=== PATIENT | male | born 1975 | race Caucasian/White ===

== ENCOUNTER → 2016-11-17 | Outpatient (CLI) | payer OTHER ==
--- NOTE | 2016-11-17 15:10 | REP ---
CT STUDY OF THE LEFT FOOT WITHOUT CONTRAST: HISTORY: Pain, question tarsal coalition. Comparison radiographs are from October 16, 2015. TECHNIQUE: Helical scanning is acquired and 2 mm axial images are reformatted. Coronal and sagittal multiplanar re-formation images are generated and reviewed. CT FINDINGS: There is Achilles and some mild plantar calcaneal spurring. There is mild osteoarthritic spurring at the tibiotalar and subtalar articulations. There is moderate spurring at the superior or dorsal aspect of the talonavicular articulation. There is no CT evidence of tarsal coalition. Mild spurring is seen between the navicula and the cuneiform bones. There is a fairly large os peroneum. There is some mild tendon insertion site spurring on the proximal end of the fifth metatarsal. No bony destructive lesion is seen. Soft tissue window settings show no significant abnormality. IMPRESSION: 1. No evidence of tarsal coalition. 2. 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 Signed by Pan Parker MD 11/17/2016 06:19 P
== END ==
LOC: M RAD 12:21
PROVIDERS: ATTEND Podiatrist
DX: M79.672 Pain in left foot (principal); M19.072 Primary osteoarthritis, left ankle and foot

== ENCOUNTER → 2020-04-08 | Emergency (ER) | payer OTHER, MEDICAID ==
[~2020-04-08] MED LIST: AMLO10TA PO; AMLO1TAB24; LOSA25TA14 PO; amLODIPine 5 MG TAB As Ordered ONE
--- NOTE | 2020-05-22 16:51 | ECGEPIP ---
SINUS RHYTHM NONSPECIFIC ST & T-WAVE CHANGES SEE SCANNED DOWNTIME REPORT MTDD
[2020-05-25 09:44] LABS: BASO # 0.1 10^3/uL (0.0-0.2); BASO % 0.9 % (0.0-1.0); EOS # 0.3 10^3/uL (0.0-0.5); EOS % 2.4 % (0.0-3.0); HEMATOCRIT 36.9 % (42.0-52.0); HEMOGLOBIN 11.6 g/dl (13.5-17.5); LYMPH # 2.6 10^3/uL (1.5-5.0); LYMPH % 25.2 % (24.0-44.0); MEAN CORPUSCULAR HEMOGLOBIN 26.8 pg (27.0-33.0); MEAN CORPUSCULAR HGB CONC 31.4 g/dl (32.0-36.5); MEAN CORPUSCULAR VOLUME 85.2 fl (80.0-96.0); MONO # 0.8 10^3/uL (0.0-0.8); MONO % 7.9 % (0.0-5.0); NEUTROPHILS # 6.2 10^3/uL (1.5-8.5); NEUTROPHILS % 60.7 % (36.0-66.0); PLATELET COUNT, AUTOMATED 357 10^3/uL (150-450); RED BLOOD COUNT 4.33 10^6/uL (4.30-6.10); WHITE BLOOD COUNT 10.2 10^3/uL (4.0-10.0)
[2020-06-21 19:27] LABS: BLOOD UREA NITROGEN 13 MG/DL (7-18); CALCIUM LEVEL 8.8 MG/DL (8.5-10.1); CARBON DIOXIDE LEVEL 29 MEQ/L (21-32); CHLORIDE LEVEL 104 MEQ/L (98-107); CK-MB VALUE MASS 5.5 NG/ML (<3.6); CPK CREATINE PHOSPHOKINASE 197 U/L (39-308); CREATININE FOR GFR 0.94 MG/DL (0.70-1.30); GLOMERULAR FILTRATION RATE > 60.0 (>60); GLUCOSE, FASTING 98 MG/DL (70-100); MB/CK RELATIVE INDEX 2.79 (< OR =4); POTASSIUM SERUM 3.8 MEQ/L (3.5-5.1); SODIUM LEVEL 136 MEQ/L (136-145); TROPONIN I 0.02 NG/ML (< 0.10)
[2020-06-21 19:29] LABS: HEMOGLOBIN A1c 6.1 %
== END | disposition home or self-care (01) ==
LOC: M ED 22:56
DX: I10 Essential (primary) hypertension (principal); R06.02 Shortness of breath; Z87.891 Personal history of nicotine dependence

== ENCOUNTER 2020-05-08 13:45 | Emergency (ER) | payer MEDICARE, MEDICAID ==
[~2020-05-08] VITALS: Ht 165.1 cm; Wt 170.9 kg
[2020-05-08] MEDS ORDERED: AMLO1TAB24 (13:54)
[2020-05-08 14:53] LABS: BASO # 0.1 10^3/uL (0.0-0.2); BASO % 1.1 % (0.0-1.0); EOS # 0.2 10^3/uL (0.0-0.5); EOS % 2.1 % (0.0-3.0); HEMATOCRIT 41.2 % (42.0-52.0); HEMOGLOBIN 12.6 g/dl (13.5-17.5); LYMPH # 2.4 10^3/uL (1.5-5.0); LYMPH % 25.9 % (24.0-44.0); MEAN CORPUSCULAR HEMOGLOBIN 26.6 pg (27.0-33.0); MEAN CORPUSCULAR HGB CONC 30.6 g/dl (32.0-36.5); MEAN CORPUSCULAR VOLUME 86.9 fl (80.0-96.0); MONO # 0.7 10^3/uL (0.0-0.8); MONO % 7.2 % (0.0-5.0); NEUTROPHILS # 5.7 10^3/uL (1.5-8.5); NEUTROPHILS % 62.6 % (36.0-66.0); PLATELET COUNT, AUTOMATED 365 10^3/uL (150-450); RED BLOOD COUNT 4.74 10^6/uL (4.30-6.10); WHITE BLOOD COUNT 9.1 10^3/uL (4.0-10.0)
[2020-05-08 15:11] LABS: BLOOD UREA NITROGEN 12 MG/DL (7-18); CALCIUM LEVEL 9.4 MG/DL (8.5-10.1); CARBON DIOXIDE LEVEL 29 MEQ/L (21-32); CHLORIDE LEVEL 106 MEQ/L (98-107); CREATININE FOR GFR 0.99 MG/DL (0.70-1.30); GLOMERULAR FILTRATION RATE > 60.0 (>60); GLUCOSE, FASTING 111 MG/DL (70-100); POTASSIUM SERUM 4.2 MEQ/L (3.5-5.1); SODIUM LEVEL 140 MEQ/L (136-145)
--- NOTE | 2020-05-08 15:14 | REPVR ---
PROCEDURE INFORMATION: Exam: XR Chest, 2 Views Exam date and time: 05/08/2020 2:51 PM Age: 45 years old Clinical indication: Screening exam; Other screening; Patient HX: PT is hypertensive; Additional info: Hypertension ext time TECHNIQUE: Imaging protocol: XR of the chest Views: 2 views. COMPARISON: CR Chest, 1 view 10/16/2015 1:55 AM FINDINGS: Lungs: Unremarkable. No consolidation. Pleural space: Unremarkable. No pleural effusion. No pneumothorax. Heart/Mediastinum: Unremarkable. No cardiomegaly. Bones/joints: Unremarkable. IMPRESSION: No acute findings. Electronically signed by: Perico Griffin On 05/08/2020 15:14:02 PM
[2020-05-08] MEDS ORDERED: AMLO10TA PO (15:32)
[2020-05-08] MEDS ORDERED: LOSA25TA14 PO (15:32)
[2020-05-08 15:42] LABS: NT-PRO BNP 103 PG/ML (<125)
[2020-05-08 15:54] VITALS: BP 190/98
[2020-05-08] MEDS ORDERED: LOSARTAN 25 MG TAB PO ONE (16:00)
[2020-05-08] MEDS ORDERED: amLODIPine 10 MG TAB PO ONE (16:00)
[2020-05-08 16:04] VITALS: BP 180/108
--- NOTE | 2020-05-16 15:29 | ECGEPIP ---
[facility] - ED Test Date: 2020-05-08 Pat Name: MARY BLANCA Department: Room: - Gender: Male Hvac Technician: leodan : 1975 Requested By: SHAYNA Contreras PA-C Order Number: [id number] Reading MD: Meredith Parry Measurements Intervals [place] Rate: 81 P: 23 OK: 175 QRS: 31 QRSD: 103 T: 54 QT: 378 QTc: 441 Interpretive Statements SINUS RHYTHM NONSPECIFIC T-WAVE ABNORMALITY BORDERLINE ECG SEE SCANNED DOWNTIME REPORT
== END 2020-05-08 16:06 | disposition home or self-care (01) ==
LOC: M ED 13:45
DX: Z76.0 Encounter for issue of repeat prescription (principal); I10 Essential (primary) hypertension; R94.31 Abnormal electrocardiogram [ECG] [EKG]; Z79.899 Other long term (current) drug therapy; Z87.891 Personal history of nicotine dependence

== ENCOUNTER → 2020-05-13 | Outpatient (REF) | payer MEDICARE, MEDICAID ==
[~2020-05-13] MED LIST changes: -amLODIPine 5 MG TAB As Ordered ONE
[2020-05-13 19:05] LABS: CHOLESTEROL RISK RATIO 5.475 (<5); FREE T4 1.15 NG/DL (0.76-1.46); THYROID STIMULATING HORMONE 1.87 uIU/ML (0.358-3.740)
[2020-05-13 20:09] LABS: HEMOGLOBIN A1c 5.6 %
== END ==
LOC: M SFHCLERA 17:53
PROVIDERS: ATTEND Nurse Practitioner Family
DX: I10 Essential (primary) hypertension (principal); R73.01 Impaired fasting glucose; Z13.220 Encounter for screening for lipoid disorders

== ENCOUNTER 2020-10-09 23:02 | Emergency (ER) | payer MEDICARE, MEDICAID ==
[~2020-10-09] VITALS: Ht 165.1 cm; Wt 171.2 kg
--- OUTSIDE RECORDS SUMMARY | 2020-10-09 23:10 | CCD ---
Author Author [facility] Organization [facility] Address Unknown Phone Unavailable Support Name Relationship Address Phone KRISHNA BLANCA [place] [address] JRC* [place] [address] [place] [address] UN ANIA BLNACA [place] [address] JUSTINEKRISHNA CORTES ECON Unknown Unavailable Re-disclosure Warning The records that you are about to access may contain information from federally-assisted alcohol or drug abuse programs. If such information is present, then the following federally mandated warning applies: This information has been disclosed to you from records protected by federal confidentiality rules (42 CFR part 2). The federal rules prohibit you from making any further disclosure of this information unless further disclosure is expressly permitted by the written consent of the person to whom it pertains or as otherwise permitted by 42 CFR part 2. A general authorization for the release of medical or other information is NOT sufficient for this purpose. The Federal rules restrict any use of the information to criminally investigate or prosecute any alcohol or drug abuse patient.The records that you are about to access may contain highly sensitive health information, the redisclosure of which is protected by Article 27-F of the [facility] Public Health law. If you continue you may have access to information: Regarding HIV / AIDS; Provided by facilities licensed or operated by the [facility] Office of Mental Health; or Provided by the [facility] Office for People With Developmental Disabilities. If such information is present, then the following [facility] mandated warning applies: This information has been disclosed to you from confidential records which are protected by state law. State law prohibits you from making any further disclosure of this information without the specific written consent of the person to whom it pertains, or as otherwise permitted by law. Any unauthorized further disclosure in violation of state law may result in a fine or halfway sentence or both. A general authorization for the release of medical or other information is NOT sufficient authorization for further disc losure. Family History Family Member Name Family Member Gender Family Member Status Date o f Status Description Data Source(s) Unknown Unknown Problem MEDENT ([facility]) Unknown Unknown Problem MEDENT ([facility]) Unknown Unknown Problem MEDENT ([facility]) Unknown Unknown Problem MEDENT ([facility]) Unknown Unknown Problem MEDENT ([facility]) Encounters Encounter Providers Location Date Indications Data Source(s ) Unknown [address] [facility] [address] 09/09/2020 12:00:00 AM EST eCW1 ([facility]) Medications Medication Brand Name Start Date Product Form Dose Route Admi nistrative Instructions Pharmacy Instructions Status Indications Reaction Description Data Source(s) 10 mg 10/06/2020 12:00:00 AM EST tablet 30 TAKE ONE TABLET BY MOUTH EVERY DAY TAKE ONE TABLET BY MOUTH EVERY DAY SOLD: 10/08/2020 [facility] 25 mg 10/06/2020 12:00:00 AM EST tablet 30 TAKE ONE TABLET BY MOUTH EVERY DAY TAKE ONE TABLET BY MOUTH EVERY DAY SOLD: 10/08/2020 [facility] Pravastatin Sodium 10 MG Oral Tablet PRAVASTATIN SODIUM 12:00:00 AM EST tablet 30 TAKE ONE TABLET BY MOUTH BRENDA TAKE ONE TABLET BY MOUTH EVERY DAY SOLD: 09/29/2020 [facility] 25 mg 09/10/2020 12:00:00 AM EST tablet 30 TAKE ONE TABLET BY MOUTH EVERY MORNING WITH FOOD TAKE ONE TABLET BY MOUTH EVERY MORNING WITH FOOD SOLD: 09/10/2020 [facility] 25 mg 09/10/2020 12:00:00 AM EST tablet 30 TAKE ONE TABLET BY MOUTH EVERY MORNING WITH FOOD TAKE ONE TABLET BY MOUTH EVERY MORNING WITH FOOD SOLD: 10/08/2020 [facility] Chlorthalidone 25 MG Oral Tablet Chlorthalidone 25 MG 2020 12:00:00 AM EST 1.0 {tablet_in_the_morning_with_food} active Chlorthalidone 25 MG eCW1 (Pending Sale To [facility]) Insurance Providers Payer name Policy type / Coverage type Policy ID Covered republican ID Covered republican's relationship to kim Policy Kim Plan Information JONH MEDICARE [id number] SP [id number] EMEDNY [id number] SP [id number] JOHN [id number] SP [id number] [place]ET[place] [id number] SP [id number] MEDICAID M [id number] [place] O [id number] S [id number] [place] O [id number] O [id number] [employer] [place] [id number] SP [id number] [employer] [place] [place] [id number] SP [id number] Aetna Ppo/Pos/Nap/MC Commercial Self SELF PAY UNAVAILABLE SP UNAVAILA BLE [id number] Patient Treatment Plan of Care Planned Activity Planned Date Details Description Data Source (s) Chlorthalidone 25 MG Oral Tablet 09/09/2020 12:00:00 AM EST eCW1 (Pending Sale To [facility])
--- OUTSIDE RECORDS SUMMARY | 2020-10-09 23:10 | CCD ---
Author Author [facility] Organization [facility] Address Unknown Phone Unavailable Care Team Providers Care Registered Massage Therapist Name Role Phone Fior Norman Unavailable PROBLEMS No Information ALLERGIES No Known Allergies ENCOUNTERS from 1975 to 2020-09-10 Encounter Location Date Provider Diagnosis [facility] [address] [place] [address] Sep, Fior Norman IMMUNIZATIONS No Information SOCIAL HISTORY Tobacco Use: Social History Observation Description Date Details (start date - stop date) Never Smoker Sex Assigned At : Social History Observation Description Sex Assigned At Unknown Tobacco Use: Question Answer Notes Are you a: never smoker REASON FOR REFERRAL No Information VITAL SIGNS No information MEDICATIONS Medication SIG (Take, Route, Frequency, Duration) Notes Start Da te End Date Status Chlorthalidone 25 MG 1 tablet in the morning with food Orally Once a day for 90 day(s) Sep, Active Amoxicillin 500 MG 1 tablet Orally bid for 10 day(s) 2018 Active PROCEDURES No Information RESULTS No Results REASON FOR VISIT Refill Goals Section No Information Health Concerns No Information MEDICAL EQUIPMENT No Information MENTAL STATUS No Information FUNCTIONAL STATUS No Information ASSESSMENTS No Information PLAN OF TREATMENT Medication Medication Name Sig Start Date Stop Date Chlorthalidone 25 MG 1 tablet in the morning with food Orally Once a day for 90 day(s) Sep, Amoxicillin 500 MG 1 tablet Orally bid for 10 day(s) Oct, 201 9 Insurance Providers Payer Name Payer Address Payer Phone Insured Name Patient Relati onship to Insured Coverage Start Date Coverage End Date AETNA [facility] [id number] [facility] [id number] MARY BLANCA self
[2020-10-09] MEDS ORDERED: PRAV10TA3 (23:14)
[2020-10-09] MEDS ORDERED: CHLO125TA (23:14)
--- NOTE | 2020-10-09 23:38 | REPVR ---
PROCEDURE INFORMATION: Exam: XR Chest, 2 Views Exam date and time: 10/09/2020 11:28 PM Age: 45 years old Clinical indication: Shortness of breath; Additional info: SOB TECHNIQUE: Imaging protocol: XR of the chest Views: 2 views. COMPARISON: CR Chest, 2 view PA, Lat 05/08/2020 2:19 PM FINDINGS: Lungs: Unremarkable. No consolidation. Pleural spaces: Unremarkable. No pleural effusion. No pneumothorax. Heart/Mediastinum: Unremarkable. No cardiomegaly. Bones/joints: Unremarkable. Soft tissues: There are generous overlying soft tissues. IMPRESSION: Negative chest without significant change from 05/08/2020. Electronically signed by: Russell Marrufo On 10/09/2020 23:37:33 PM
[2020-10-09 23:57] LABS: VENOUS BASE EXCESS -2.1 (-2.0-2.0); VENOUS HCO3 18.5 MEQ/L (23.0-27.0); VENOUS O2 SATURATION 98.9 % (60.0-80.0); VENOUS PARTIAL PRESSURE O2 129.3 mmHg (30.0-50.0); VENOUS PH 7.543 UNITS (7.330-7.430); VENOUS STANDARD HCO3 22.7 MEQ/L; VENOUS TOTAL CO2 19.2 MEQ/L (24.0-28.0)
[2020-10-10 00:17] LABS: BASO # 0.1 10^3/uL (0.0-0.2); BASO % 0.7 % (0.0-1.0); EOS # 0.2 10^3/uL (0.0-0.5); EOS % 1.6 % (0.0-3.0); HEMATOCRIT 36.9 % (42.0-52.0); HEMOGLOBIN 11.5 g/dl (13.5-17.5); LYMPH # 2.6 10^3/uL (1.5-5.0); LYMPH % 25.6 % (24.0-44.0); MEAN CORPUSCULAR HEMOGLOBIN 26.3 pg (27.0-33.0); MEAN CORPUSCULAR HGB CONC 31.2 g/dl (32.0-36.5); MEAN CORPUSCULAR VOLUME 84.2 fl (80.0-96.0); MONO # 0.9 10^3/uL (0.0-0.8); MONO % 8.9 % (0.0-5.0); NEUTROPHILS # 6.4 10^3/uL (1.5-8.5); NEUTROPHILS % 62.4 % (36.0-66.0); PLATELET COUNT, AUTOMATED 313 10^3/uL (150-450); RED BLOOD COUNT 4.38 10^6/uL (4.30-6.10); WHITE BLOOD COUNT 10.2 10^3/uL (4.0-10.0)
[2020-10-10 00:33] LABS: ALBUMIN 3.7 GM/DL (3.2-5.2); ALT/SGPT 22 U/L (12-78); BILIRUBIN,DIRECT < 0.1 MG/DL (0.0-0.2); BILIRUBIN,TOTAL 0.2 MG/DL (0.2-1.0); BLOOD UREA NITROGEN 19 MG/DL (7-18); CALCIUM LEVEL 9.4 MG/DL (8.5-10.1); CARBON DIOXIDE LEVEL 28 MEQ/L (21-32); CHLORIDE LEVEL 103 MEQ/L (98-107); CK-MB VALUE MASS 6.2 NG/ML (<3.6); CPK CREATINE PHOSPHOKINASE 315 U/L (39-308); CREATININE FOR GFR 1.01 MG/DL (0.70-1.30); GLOMERULAR FILTRATION RATE > 60.0 (>60); GLUCOSE, FASTING 90 MG/DL (70-100); MB/CK RELATIVE INDEX 1.97 (< OR =4); NT-PRO BNP 75 PG/ML (<125); POTASSIUM SERUM 3.7 MEQ/L (3.5-5.1); SODIUM LEVEL 139 MEQ/L (136-145); TOTAL PROTEIN 7.4 GM/DL (6.4-8.2); TROPONIN I < 0.02 NG/ML (< 0.10)
[2020-10-10 04:30] VITALS: BP 219/86
--- OUTSIDE RECORDS SUMMARY | 2020-10-10 04:46 | CCD ---
Author Author [facility] Organization [facility] Address Unknown Phone Unavailable Support Name Relationship Address Phone KRISHNA BL[place] [address] JRC* [place] [address] [place] [address] [place] [address] JUSTINEKRISHNA CORTES ECON Unknown Unavailable Re-disclosure Warning [...] is protected by Article 27-F of the [facility] Public Health law. If you continue you may have access to information: Regarding HIV / AIDS; Provided by facilities licensed or operated by the [facility] Office of Mental Health; or Provided by the [facility] Office for People With Developmental Disabilities. If such information is present, then the following [facility] mandated warning applies: This information has been [...] law may result in a fine or penitentiary sentence or both. A general authorization for [...] Date Indications Data Source(s ) Unknown [address] [facility] [address] 09/09/2020 12:00:00 AM EST eCW1 ([facility]) Medications Medication Brand Name Start Date Product [...] 1.0 {tablet_in_the_morning_with_food} active Chlorthalidone 25 MG eCW1 ([facility]) Insurance Providers Payer name Policy type / Coverage type Policy ID Covered alliance party ID Covered alliance party's relationship to kim Policy Kim Plan Information JOHN MEDICARE [id number] SP 7 [id number] EMEDNY [id number] SP [id number] JOHN [id number] SP [id number] A[employer] [id number] SP [id number] MEDICAID M [id number] S [id number] [place] O [id number] S [id number] [place] O [id number] O [id number] [employer] [place] [id number] SP [id number] [employer] [place] [id number] SP [id number] Aetna Ppo/Pos/Nap/MC Commercial Self SELF PAY UNAVAILABLE SP UNAVAILA BLE [id number] Patient Treatment Plan of Care Planned Activity Planned Date Details Description Data Source (s) Chlorthalidone 25 MG Oral Tablet 09/09/2020 12:00:00 AM EST eCW1 ([facility])
--- NOTE | 2020-10-10 19:32 | ECGEPIP ---
[facility] - ED Test Date: 2020-10-09 Pat Name: MARY BLANCA Department: Room: - Gender: Male Staff Technologist: : 1975 Requested By: ANASTACIO De La Paz Order Number: [id number] Reading MD: Augustin Benites Measurements Intervals [place] Rate: 80 P: 37 MD: 152 QRS: 16 QRSD: 109 T: 45 QT: 391 QTc: 452 Interpretive Statements SINUS RHYTHM NONSPECIFIC T-WAVE ABNORMALITY SIMILAR TO 05/08/20 Electronically Signed on 10-10-2020 19:32:18 EST by Augustin Benites
== END 2020-10-10 04:53 | disposition home or self-care (01) ==
LOC: M ED 23:02
DX: R06.09 Other forms of dyspnea (principal); I11.0 Hypertensive heart disease with heart failure; Z79.899 Other long term (current) drug therapy

== ENCOUNTER → 2021-01-05 | Outpatient (REF) | payer OTHER ==
[~2021-01-05] MED LIST changes: +CHLO125TA; +PRAV10TA3
== END ==
LOC: M SFHCLERA 15:21
PROVIDERS: ATTEND Nurse Practitioner Family
DX: R80.9 Proteinuria, unspecified (principal)

== ENCOUNTER → 2021-01-05 | Outpatient (CLI) | payer OTHER ==
[2021-01-05 17:43] LABS: BASO % 0.5 % (0.0-1.0); HEMATOCRIT 40.3 % (42.0-52.0); LYMPH # 1.8 10^3/uL (1.5-5.0); LYMPH % 22.6 % (24.0-44.0); MEAN CORPUSCULAR HEMOGLOBIN 25.9 pg (27.0-33.0); MEAN CORPUSCULAR HGB CONC 32.3 g/dl (32.0-36.5); MEAN CORPUSCULAR VOLUME 80.4 fl (80.0-96.0); MONO # 0.8 10^3/uL (0.0-0.8); MONO % 9.8 % (2.0-8.0); NEUTROPHILS # 5.3 10^3/uL (1.5-8.5); NEUTROPHILS % 65.9 % (36.0-66.0); PLATELET COUNT, AUTOMATED 302 10^3/uL (150-450); RED BLOOD COUNT 5.01 10^6/uL (4.30-6.10); WHITE BLOOD COUNT 8.1 10^3/uL (4.0-10.0)
[2021-01-05 18:08] LABS: ALBUMIN 3.9 GM/DL (3.2-5.2); BILIRUBIN,TOTAL 0.6 MG/DL (0.2-1.0); CALCIUM LEVEL 9.5 MG/DL (8.5-10.1); CREATININE FOR GFR 2.04 MG/DL (0.70-1.30); GLOMERULAR FILTRATION RATE 37.5 (>60); POTASSIUM SERUM 3.7 MEQ/L (3.5-5.1); TOTAL PROTEIN 7.7 GM/DL (6.4-8.2)
[2021-01-05 18:18] LABS: APPEARANCE, URINE HAZY (CLEAR); BACTERIA, URINE AUTO NEGATIVE (NEGATIVE); BILIRUBIN, URINE AUTO NEGATIVE (NEGATIVE); BLOOD, URINE BLOOD NEGATIVE (NEGATIVE); COLOR, URINE AMBER (YELLOW); GLUCOSE, URINE (UA) AUTO NEGATIVE (NEGATIVE); KETONE, URINE AUTO NEGATIVE (NEGATIVE); LEUKOCYTE ESTERASE, URINE AUTO NEGATIVE (NEGATIVE); MUCUS, URINE SMALL (NEGATIVE); NITRITE, URINE AUTO NEGATIVE (NEGATIVE); PROTEIN, URINE AUTO 2+ mg/dL (NEGATIVE); RBC, URINE AUTO 3 /HPF (0-3); SPECIFIC GRAVITY URINE AUTO 1.026 (1.002-1.035); SQUAMOUS EPITHELIAL CELL UR AU 1 /HPF (0-6); UROBILINOGEN, URINE AUTO 0.2 mg/dL (0.0-2.0); WBC, URINE AUTO 7 /HPF (0-3)
== END ==
LOC: M LAB 16:51
PROVIDERS: ATTEND Nurse Practitioner Family
DX: R80.9 Proteinuria, unspecified (principal)

== ENCOUNTER 2021-06-09 22:00 | Emergency (ER) | payer OTHER ==
[~2021-06-09] VITALS: Ht 182.9 cm; Wt 153.1 kg
[2021-06-09 22:00] VITALS: BP 178/90
== END 2021-06-10 01:00 | disposition left against medical advice (07) ==
LOC: M ED 22:00
DX: Z53.29 Procedure and treatment not carried out because of patient's decision for other reasons (principal)